=== PATIENT | male | born 1985 | race African-American/Black ===

== ENCOUNTER 2018-03-14 21:47 | Emergency (ER) | payer MEDICAID ==
[~2018-03-14] VITALS: Ht 180.3 cm; Wt 61.5 kg
[2018-03-15] MEDS: MORPHINE SULFATE 10 MG/ML CPJ IM ONE (00:34)
[2018-03-15] MEDS: KETOROLAC 60MG/2ML VIAL IM ONE (00:35)
[2018-03-15] MEDS: ONDANSETRON 4MG ODT PO ONE (00:36)
[2018-03-15 13:36] VITALS: BP 137/74
== END 2018-03-15 13:38 | disposition home or self-care (01) ==
LOC: ER 21:47
DX: M79.1 Myalgia (principal); M54.5 Low back pain; M54.2 Cervicalgia; M25.552 Pain in left hip; R51 Headache; F17.200 Nicotine dependence, unspecified, uncomplicated; Z59.0 Homelessness; Y08.89XA Assault by other specified means, initial encounter; Y93.89 Activity, other specified; Y92.89 Other specified places as the place of occurrence of the external cause; Y99.8 Other external cause status
CPT/HCPCS: 71045; 73502; 96372; 99284; J1885; J2270; Q0162